=== PATIENT | male | born 1965 | race Caucasian/White ===

== ENCOUNTER 2016-09-29 23:21 | Emergency (ER) | payer MEDICAID ==
[2016-09-29 23:31] VITALS: TEMP 97.7
[2016-09-30] MEDS ORDERED: OXYCODONE/APAP 5/325 TAB PO ONE (00:11)
--- NOTE | 2016-09-30 00:13 | EDPHY ---
General - History History Review: I reviewed the patient's medical records Smoking Status: Current every day smoker Narrative: CHIEF COMPLAINT: Left shoulder pain HISTORY OF PRESENT ILLNESS: patient says he fell on the left shoulder 4 weeks ago in [place]. He landed awkwardly on it. Since that time he has had moderate to severe pain in the shoulder. This primarily over the lateral aspect of the shoulder radiates down into the proximal humerus. No deficits but the movement of the shoulder is very painful. Specifically abduction and external rotation. No numbness or tingling. No injury to the chest or clavicle. No shortness of breath. No lacerations or abrasions. He has not yet been seen for this as he has been out of town. No other associated complaints or modifying factors. PRIOR ORTHO INJURIES: None ESTABLISHED ORTHOPEDIST: none REVIEW OF SYSTEMS: Ten systems reviewed and are negative unless otherwise noted in the HPI EXAMINATION General Appearance: Alert, no distress Cardiovascular: Pulses normal throughout. symmetric radial pulses 2+. Symmetric DP 2+. Brisk cap refill Neurological: A&O, Sensory intact including C5 of the shoulders. Strength is symmetric in both limbs. Skin: Warm and dry, no rash Extremities: Moderate tender to palpation of the left deltoid. Negative Yergason's and speed. Negative empty can. no bony tenderness of the left wrist , forearm or elbow. Range of motion of the left wrist and elbow fully intact. Brisk cap refill and 2+ radial pulse on the left. Range of motion is otherwise fully intact. Psychiatric: Mood and affect normal DIFFERENTIAL DIAGNOSES: Including but not limited to Fracture, sprain, strain, rotator cuff injury, slap tear, AC separation MDM: 12:12 a.m. left shoulder pain for 4 weeks. The patient had a trauma 4 weeks ago. He is neurovascular intact with a suspected AC sprain, possible rotator cuff injury and possible slap injury. X-ray has been ordered. Percocet ordered. 12:50 a.m. blunt trauma to the left shoulder that is likely AC separation versus rotator cuff injury. I do not appreciate any fracture on the x-ray as interpreted by me. Will place him in a sling for comfort, provide pain medication and muscle relaxants. I have instructed him to take his arm out of the sling several times a day to perform [id number] exercises on the shoulder and elbow. Provide orthopedic follow-up for him, but he will need to go through his primary care physician. He is neuro intact and there is no need for emergent MRI at this point. Discharged home with the above. I have answered all his questions and he is comfortable with this plan. ED Precautions: Worsening pain. Erythema, edema, cyanosis, pallor, paresthesia or anesthesia. SUPERVISION: This patient was independently evaluated without the aide of supervising physician. (Cristian Sheffield) Medical Decision Making: PHYSICIAN DOCUMENTATION: The patient was evaluated and managed by the Physician Strap Folding Machine Operator. My co- signature indicates that I have reviewed this chart and I agree with the findings and plan of care as documented. I am the secondary supervising physician. (Keara Ocampo) - Objective Vital Signs: Initial Vital Signs Temperature (C) 36.5 C 09/29/16 23:29 Heart Rate 69 09/29/16 23:29 Respiratory Rate 18 09/29/16 23:29 Blood Pressure 139/76 H 09/29/16 23:29 O2 Sat (%) 96 09/29/16 23:29 O2 Delivery Mode Room Air Allergies/Adverse Reactions: morphine Allergy (Verified 09/29/16 23:31) Home Medications: Medication Instructions Recorded Ondansetron Odt [Zofran Odt 4 mg 4 mg PO Q6 PRN #12 tab 09/30/16 (*)] oxyCODONE HCL/ACETAMINOPHEN 1 each PO Q4-6PRN PRN #15 tablet 09/30/16 [Percocet 5-325 mg Tablet] Medications Given: Discontinued Medications Cyclobenzaprine HCl (Flexeril 10 Mg Prepack#3) 1 btl TAKEHOME EDNOW ONE Stop: 09/30/16 00:53 Last Admin: 09/30/16 01:06 Dose: 1 btl Oxycodone/Acetaminophen (Percocet 5/325) 1 tab PO EDNOW ONE Stop: 09/30/16 00:12 Last Admin: 09/30/16 00:19 Dose: 1 tab Oxycodone/Acetaminophen (Percocet 5/325mg Prepack#4) 1 btl TAKEHOME EDNOW ONE Stop: 09/30/16 00:53 Last Admin: 09/30/16 01:07 Dose: 1 btl Departure - Departure Disposition: Home, Routine, Self-Care Clinical Impression: Sprain of shoulder, left Qualifiers: Encounter type: initial encounter Shoulder sprain type: unspecified sprain Qualified Code(s): S43.402A - Unspecified sprain of left shoulder joint, initial encounter Condition: Good Instructions: Oxycodone/Acetaminophen (By mouth), Cyclobenzaprine (By mouth), Rotator Cuff Injury (ED), Shoulder Sprain (ED), Adhesive Capsulitis (ED) Additional Instructions: Sling for comfort. Take your arm out of the sling several times a day to perform [id number] exercises on the shoulder and elbow. Follow up with Orthopedics and/or primary care physician for definitive care. Referrals: Patient,NotPresent [Unknown] - As per Instructions Craig Boyd MD [Medical Doctor] - As per Instructions [facility],. [Clinic] - As per Instructions Prescriptions: Ondansetron Odt [Zofran Odt 4 mg (*)] 4 mg PO Q6 PRN #12 tab PRN Reason: Nausea/Vomiting, Use 1st oxyCODONE HCL/ACETAMINOPHEN [Percocet 5-325 mg Tablet] 1 each PO Q4-6PRN PRN # 15 tablet PRN Reason: Pain, Breakthrough
[2016-09-30] MEDS ORDERED: CYCLOBENZAPRINE 10MG PREPACK#3 BTL TAKEHOME ONE (00:52)
[2016-09-30] MEDS ORDERED: OXYCODONE/APAP 5/325MG PREPACK#4 BTL TAKEHOME ONE (00:52)
[2016-09-30 01:09] VITALS: BP 137/89; PULSE 78; RESP 20; O2SAT 98
== END 2016-09-30 01:09 | disposition home or self-care (01) ==
DX: S43.402A Unspecified sprain of left shoulder joint, initial encounter (principal); F17.200 Nicotine dependence, unspecified, uncomplicated; W19.XXXA Unspecified fall, initial encounter
CPT/HCPCS: A4565

== ENCOUNTER 2016-11-29 17:48 | Emergency (ER) | payer MEDICAID ==
[2016-11-29] MEDS ORDERED: KETOROLAC 30 MG/1 ML SDV IVP ONE (18:06)
[2016-11-29] MEDS ORDERED: ONDANSETRON 4 MG/2 ML VIAL IVP ONE (18:06)
[2016-11-29] MEDS ORDERED: HYDROmorphONE/DILAUDID 1 MG/ML SYR IVP ONE ×2 (18:06→19:05)
[2016-11-29] MEDS ORDERED: NS 1,000 ML IV ONE (18:07)
[2016-11-29] MEDS ORDERED: LORazepam 2 MG/ML INJ IVP ONE (18:07)
--- NOTE | 2016-11-29 18:10 | EDPHY ---
H & P Time Seen by Provider: 11/29/16 17:58 HPI/ROS: CHIEF COMPLAINT: Left shoulder pain HISTORY OF PRESENT ILLNESS: 51-year-old man had surgery in [place] by Dr. Cruz for his left rotator cuff yesterday. He had a scalene block and it wore off and today he is having much more pain. He has severe anxiety and says the pain is not controlled by Percocet. It does not radiate and isn' t associated with fever or redness and shoulder. Worse with movement of his shoulder. Not better with oral medication. His family here with him emphasizes that the main component is anxiety and the patient admits the anxiety is really what was making his symptoms a lot worse. REVIEW OF SYSTEMS: Eye: no change in vision ENT: no sore throat Cardiac: no chest pain or syncope Pulmonary: no cough or SOB Abdomen: no vomiting, diarrhea, abdominal pain Musculoskeletal: HPI Skin: no rash, incisions clean dry and intact Neuro: no headache Constitutional: no fever : no urinary symptoms A comprehensive 10 point review of systems is otherwise negative aside from elements mentioned in the history of present illness. PAST MEDICAL HISTORY: Right shoulder surgery for scapular injury, left rotator cuff surgery Social history: Cannabis user, no tobacco or alcohol General Appearance: Alert and conversant, cooperative. Eyes: No scleral icterus. ENT, Mouth: Normal mucous membranes. Respiratory: Normal respiratory effort, breath sounds equal, lungs are clear to auscultation. Cardiovascular: Regular rate and rhythm. Gastrointestinal: Abdomen is soft and non tender. Neurological: Alert and oriented x3. Normally conversant. Face symmetric, normal sensation and movement in left hand. Skin:. There is no redness, warmth, blisters ,eschar, drainage, or lymphangitis on the left shoulder. Musculoskeletal: Left shoulder is held in abduction and internal rotation. Incisions clean dry and intact. Normal radial pulse and normal motor and sensory in the left hand. Compartments soft in upper arm. Psychiatric: Moderate anxiety Emergency Department course/MDM: Toradol 15 mg IV, Dilaudid 0.5 mg IV, Ativan 1 mg IV. 1904: Much improved, additional 0.5 mg IV Dilaudid, requesting Soma and will agree to give him a prescription to last him until Thursday when he can contact his orthopedist - #5. 2024: feels better, wants to go. 2034: Now the patient says he is upset that I am not writing him for a prescription for "some stronger pain medication." I told him that I do not not write for "stronger narcotic pain medication" than Percocet. I agreed to write him for oral Ativan 1 mg #5 for his anxiety. Offered additional emergency department pain medication and declined. Smoking Status: Current every day smoker Constitutional: Initial Vital Signs Temperature (C) 36.7 C 11/29/16 17:53 Heart Rate 73 11/29/16 17:53 Respiratory Rate 22 H 11/29/16 17:53 Blood Pressure 140/82 H 11/29/16 17:53 O2 Sat (%) 95 11/29/16 17:53 O2 Delivery Mode Room Air Allergies/Adverse Reactions: morphine Allergy (Verified 11/29/16 17:52) Home Medications: Medication Instructions Recorded Ondansetron Odt [Zofran Odt 4 mg 4 mg PO Q6 PRN #12 tab 09/30/16 (*)] oxyCODONE HCL/ACETAMINOPHEN 1 each PO Q4-6PRN PRN #15 tablet 09/30/16 [Percocet 5-325 mg Tablet] Carisoprodol [Soma] 250 mg PO TID PRN #5 tablet 11/29/16 LORazepam [Ativan] 1 mg PO Q8 PRN #5 tablet 11/29/16 Medical Decision Making Differential Diagnosis: Differential considered including but not limited to compartment syndrome, DVT, arterial occlusion, septic joint, fasciitis. - Data Points Medications Given: Discontinued Medications Hydromorphone HCl (Dilaudid) 0.5 mg IVP EDNOW ONE Stop: 11/29/16 18:07 Last Admin: 11/29/16 18:25 Dose: 0.5 mg Hydromorphone HCl (Dilaudid) 0.5 mg IVP EDNOW ONE Stop: 11/29/16 19:06 Last Admin: 11/29/16 19:12 Dose: 0.5 mg Sodium Chloride (Ns) 1,000 mls @ 0 mls/hr IV ONCE ONE PRN Reason: Wide Open Stop: 11/29/16 18:08 Last Admin: 11/29/16 18:25 Dose: 1,000 mls Ketorolac Tromethamine (Toradol) 15 mg IVP EDNOW ONE Stop: 11/29/16 18:07 Last Admin: 11/29/16 18:27 Dose: 15 mg Lorazepam (Ativan Injection) 1 mg IVP EDNOW ONE Stop: 11/29/16 18:08 Last Admin: 11/29/16 18:30 Dose: 1 mg Ondansetron HCl (Zofran) 4 mg IVP EDNOW ONE Stop: 11/29/16 18:07 Last Admin: 11/29/16 18:28 Dose: 4 mg Departure - Departure Disposition: Home, Routine, Self-Care Clinical Impression: Hx of rotator cuff surgery Shoulder pain, left Qualifiers: Chronicity: acute Qualified Code(s): M25.512 - Pain in left shoulder Condition: Good Instructions: Shoulder Pain (ED) Additional Instructions: Followup Thursday with Dr. Cruz, your surgeon. Referrals: [facility] [Other] - As per Instructions Prescriptions: Carisoprodol [Soma] 250 mg PO TID PRN #5 tablet PRN Reason: shoulder pain LORazepam [Ativan] 1 mg PO Q8 PRN #5 tablet PRN Reason: Anxiety
[2016-11-29 19:05] VITALS: PULSE 55
[2016-11-29 20:36] VITALS: BP 138/80; RESP 20; TEMP 98.2; O2SAT 94
== END 2016-11-29 20:36 | disposition home or self-care (01) ==
DX: M25.512 Pain in left shoulder (principal); F17.200 Nicotine dependence, unspecified, uncomplicated; Z98.890 Other specified postprocedural states
CPT/HCPCS: 96374; J1170; J1885; J2060; J2405